=== PATIENT | female | born 1935 | race Caucasian/White ===

== ENCOUNTER → 2017-12-22 10:09 | Outpatient (CLI) | payer MEDICARE, OTHER, SELFPAY ==
--- NOTE | 2017-12-22 | DI.CT.S_ITS ---
PROCEDURE: CT CHEST WO CON INDICATIONS: 82 year-old female with lung carcinoma surveillance. TECHNIQUE: Noncontrast 5 mm thick sections acquired from the pulmonary apices to the posterior costophrenic angles. 7 mm thick coronal and sagittal MIP reformats were then acquired. For radiation dose reduction, the following was used: automated exposure control, adjustment of mA and/or kV according to patient size. COMPARISON: [facility], CT, THORAX WITHOUT CONTRAST, 12/05/2016, 11:02. [facility], CT, THORAX WITHOUT CONTRAST, 12/11/2015, 10:18. [facility], CT, THORAX WITHOUT CONTRAST, 04/07/2015, 9:42. [facility], CT, THORAX WITHOUT CONTRAST, 12/05/2014, 10:06. [facility], CT, THORAX WITHOUT CONTRAST, 04/18/2014, 8:52. [facility], CT, THORAX WITH CONTRAST, 01/11/2014, 11:49. Outside Facility, , CT THORAX W/O CONTRAST, 08/23/2013, 9:12. FINDINGS: Image quality: Excellent. Lungs and pleura: No acute air space opacities. Patient is status post left upper lobectomy. On axial image 16, 4 mm lateral right apical subpleural nodule is unchanged since December 2013. Anterolateral lingular subpleural scarring is unchanged. No pleural effusions or pneumothorax. Central and peripheral airways are patent and normal in caliber. Mediastinum: Heart size is normal. No pericardial effusion. No mediastinal adenopathy by size criteria. Thoracic aorta is normal in size. Main pulmonary artery is prominent in caliber. Esophagus is normal in caliber. No hiatal hernia. Bones and chest wall: No suspicious bony lesions. There is a defect in the posterior left sixth rib from remote thoracotomy. 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 No vertebral body compression fractures. No axillary or supraclavicular adenopathy by size criteria. Thyroid gland is normal in size. Abdomen: Visualized upper abdominal solid organs and bowel loops appear normal in the absence of contrast. IMPRESSION: 1. No evidence for recurrent lung neoplasm, status post remote left upper lobectomy. Benign 4 mm lateral right apical nodule is unchanged since 2013. 2. 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 3. Enlarged main pulmonary artery as before, consistent with pulmonary hypertension. Dictated by: Jeramie Laguerre M.D. on 12/22/2017 at 10:51 Approved by: Jeramie Laguerre M.D. on 12/22/2017 at 11:00
== END ==
PROVIDERS: PCP Internal Medicine; Visit Provider Specialist
DX: Z08 Encounter for follow-up examination after completed treatment for malignant neoplasm (principal); Z85.118 Personal history of other malignant neoplasm of bronchus and lung; I27.20 Pulmonary hypertension, unspecified
CPT/HCPCS: 71250

== ENCOUNTER → 2018-03-13 09:30 | Outpatient (CLI) | payer MEDICARE, OTHER, SELFPAY ==
--- NOTE | 2018-03-13 | DI.MG.S_ITS ---
BILATERAL DIGITAL SCREENING MAMMOGRAM 3D/2D WITH CAD: 03/13/2018 CLINICAL: Routine screening. Comparison is made to exams dated: 02/10/2017 mammogram, 01/18/2016 mammogram, and 12/29/2014 mammogram - [facility]. There are scattered fibroglandular elements in both breasts. Current study was also evaluated with a Computer Aided Detection (CAD) system. No significant masses, calcifications, or other findings are seen in either breast. There has been no significant interval change. IMPRESSION: NEGATIVE There is no mammographic evidence of malignancy. A 1 year screening mammogram is recommended. This exam was interpreted at Station ID: [id number]. NOTE: For mammograms, a report in lay terms will be sent to the patient. Approximately 15% of breast malignancies will not be visualized mammographically. In the management of a palpable breast mass, a negative mammogram must not discourage biopsy of a clinically suspicious lesion. Electronically Signed By: Merritt stern/vanessa:03/13/2018 20:30:10 letter sent: Normal Exam ACR BI-RADS Category 1: Negative [id number]
== END ==
PROVIDERS: PCP Internal Medicine; Visit Provider Internal Medicine
DX: Z12.31 Encounter for screening mammogram for malignant neoplasm of breast (principal)
CPT/HCPCS: 77063; 77067

== ENCOUNTER → 2019-09-16 09:22 | Oncology outpatient (ONC) | payer MEDICARE, OTHER, SELFPAY ==
[2017-12-29 13:46] VITALS: BP 121/69; PULSE 75; RESP 15; TEMP 36.7; O2SAT 97
--- NOTE | 2017-12-29 14:09 | P.PNONC_ITS ---
Assessment and Plan (1) Malignant neoplasm of unspecified part of unspecified bronchus or lung Current visit: No Status: Acute - Time Spent with Patient Ysisel is a very pleasant 82-year-old female who reassuringly on exam today shows no signs or symptoms of recurrence of her lung cancer. Specifically she has no unexplained weight loss, no worsening shortness of breath, no cough, no hemoptysis. No new pain. In fact, overall she is feeling quite well. She is planning to move to [place] this fall. CBC and CMP are unremarkable. Surveillance CT December 22, 2017 was without evidence of malignancy. Patient can establish with her new primary care provider after her move. Upon which patient and provider can collectively decided how to manage screenings moving forward. CT scans are no longer routinely done, only if clinically indicated. Patient verbalizes understanding. PN -Subjective Interval history: Yissel is an 82-year-old female being seen in the clinic December 29, 2017. She carries a diagnosis of stage I non-small cell lung cancer in clinical remission/surveillance since original diagnosis was made in August 2013. She has no new complaints on exam today. Overall feeling quite well. No worsening shortness of breath. No cough. No hemoptysis. No chest pain. Activity tolerance is unchanged. Weight is stable. Appetite is stable. No change with bladder or bowel habits. She spent her winter in [place] has recent ly moved back to [facility]. She has brought a condo in an assisted living facility in [place] and plans to move this fall. During the interim she did have surveillance CT December 22, 2017. Past Medical History The patient's past medical history is significant for: 1. Early-stage lung cancer diagnosed in August 2013, status post upper lobe resection in surveillance per NCCN guidelines. Patient's last scan was a CT of the chest dated 12/05/2026. No evidence of recurrent disease seen. Stable right subpleural nodule along the apex and postsurgical changes the left costo phrenic angle. 2. Polymyalgia rheumatica. 3. Hypothyroidism. 4. Valley fever, resolved. Home Medications and Allergies Home Medications Medication Instructions Recorded Confirmed Type ascorbic acid (vitamin C) 500 mg PO QDAY #0 04/18/16 12/29/17 History aspirin 81 mg PO DAILY 12/29/17 12/29/17 History coenzyme [id number] [Co Q-10 1 cap PO QAM 12/29/17 12/29/17 History (with Vit E)] cyanocobalamin (vitamin B-12) 500 mcg PO DAILY 12/29/17 12/29/17 History [Vitamin B-12] diphenhydramine-acetaminophen 2 tab PO BEDTIME PRN 12/29/17 12/29/17 History [Tylenol PM Extra Strength] fluticasone [Flonase Allergy 1 spray INTRANASAL DAILY 12/29/17 12/29/17 History Relief] folic acid 1 mg PO DAILY 12/29/17 12/29/17 History lactobacillus combination no.4 3,000 mmu cells PO DAILY 12/29/17 12/29/17 History [Probiotic] melatonin 3 mg PO BEDTIME PRN 12/29/17 12/29/17 History methylcellulose (with sugar) 2.5 tsp PO TID 12/29/17 12/29/17 History [Citrucel (sucrose)] omega-3 fatty acids-fish oil [Fish 1 cap PO BID 12/29/17 12/29/17 History Oil] Allergies Allergy/AdvReac Type Severity Reaction Status Date / Time codeine AdvReac Intermediate Palpitation Verified 12/29/17 13:49 s wine AdvReac Intermediate Palpitation Uncoded 12/29/17 13:49 s Exam Vital signs: Last Vital Signs Temp 98.0 F 12/29/17 13:46 Pulse 75 12/29/17 13:46 Resp 15 12/29/17 13:46 BP 121/69 H 12/29/17 13:46 Pulse Ox 97 12/29/17 13:46 Narrative: well appearing - Constitutional positive no acute distress, positive average body habitus - Routine HEENT Exam Head: Present: normocephalic, atraumatic Eye: Present: EOMI, PERRL, normal accommodation. Absent: conjunctival icterus, scleral injection ENT: Present: mucous membranes moist, oropharynx clear, external ear normal, TM's clear bilaterally - Routine Neck Exam Present: supple. Absent: JVD, lymphadenopathy - Routine Chest/Breast/Axilla Exam Axillae: Absent: lymphadenopathy, mass, tenderness Comments: left clavicle per pt extra rib - Routine Respiratory Exam Present: Clear to auscultation bilaterally, decreased breath sounds. Absent: accessory muscle use, prolonged expiratory phase, rales, rhonchi, wheezes - Routine Cardiovascular Exam Present: RRR, S1, S2 - Routine Abdominal Exam Present: soft, normoactive bowel sounds. Absent: tenderness, distended, organomegaly, mass - Routine Extremities Exam Absent: clubbing, edema, calf tenderness - Routine Skin Exam Present: intact, normal turgor. Absent: petechiae - Routine Neurological Exam Present: alert, oriented X3 - Routine Psychiatric Exam Present: normal affect
== END ==
PROVIDERS: PCP Internal Medicine; Visit Provider Internal Medicine Hematology & Oncology
DX: Z08 Encounter for follow-up examination after completed treatment for malignant neoplasm (principal); Z85.118 Personal history of other malignant neoplasm of bronchus and lung
CPT/HCPCS: 99214